=== PATIENT | male | born 1995 | race African-American/Black ===

== ENCOUNTER 2018-12-23 10:50 | Emergency (ER) | payer MEDICAID ==
[~2018-12-23] VITALS: Ht 170.2 cm; Wt 67.0 kg
[2018-12-23] MEDS ORDERED: ALBUTEROL (0.083%) 2.5MG/3ML NEB HHN STA (13:43)
[2018-12-23] MEDS ORDERED: PREDNISONE 20MG TABLET PO STA (13:43)
[2018-12-23] MEDS ORDERED: IPRATROPIUM BROMIDE (0.02%) 0.5MG/2.5ML NEB HHN STA (13:43)
[2018-12-23 15:00] VITALS: BP 116/71
== END 2018-12-23 15:00 | disposition home or self-care (01) ==
LOC: ER 11:28
DX: J45.901 Unspecified asthma with (acute) exacerbation (principal); Z94.5 Skin transplant status; Z91.018 Allergy to other foods
CPT/HCPCS: 94640; 99283; J7512; J7611

== ENCOUNTER 2018-12-30 20:05 | Inpatient (IN) | payer MEDICAID ==
[~2018-12-30] VITALS: Ht 170.2 cm; Wt 69.4 kg
[2018-12-30] MEDS ORDERED: SODIUM CHLORIDE 0.9% 1,000 ML IV ONE (20:41)
[2018-12-30 21:05] LABS: BASOPHILS % 1.3 % (0.0-2.0); EOSINOPHILS % 6.9 % (0.0-5.0); HEMATOCRIT. 39.7 % (42.0-52.0); HEMOGLOBIN. 14.1 g/dL (14.0-18.0); LYMPHOCYTES % 26.6 % (20.0-50.0); MEAN CORPUSCULAR HEMOGLOBIN 28.4 pg (28.0-32.0); MEAN CORPUSCULAR VOLUME 80.1 fL (80.0-94.0); MEAN PLATELET VOLUME 8.2 fl (7.4-10.4); MONOCYTES % 7.8 % (2.0-8.0); NEUTROPHILS % 57.4 % (40.0-76.0); PLATELET 184 x1000/uL (130-400); RED BLOOD CELL COUNT 4.96 mill/uL (4.7-6.1); RED CELL DISTRIBUTION WIDTH 14.1 % (11.6-14.6)
[2018-12-30 21:12] LABS: CHLORIDE 108 mEq/L (98-107)
[2018-12-30 21:15] LABS: ETHANOL BLOOD < 10 mg/dL
[2018-12-30 21:22] LABS: BG BASE EXCESS -0.5 mmol/L (-2.0-2.0); BG CARBOXYHEMOGLOBIN 0.5 % (0.5-1.5); BG DEOXYHEMOGLOBIN 3.2 % (0.0-5.0); BG FRACTION INSPIRED OXYGEN 21; BG HCO3 ACT 23.9 mmol/L (22.0-26.0); BG METHEMOGLOBIN 0.2 % (0.0-1.5); BG OXYGEN SATURATION 96.8 % (92.0-98.5); BG OXYHEMOGLOBIN 96.1 % (94.0-97.0); BG PCO2 38.8 mmHg (35.0-45.0); BG PH 7.408 (7.350-7.450); BG PO2 95.1 mmHg (75.0-100.0); BG SAMPLE SITE RIGHT RADIAL; BG TOTAL HEMOGLOBIN 14.3 g/dL (12.0-18.0); BG VENT MODE ROOM AIR
[2018-12-30 21:26] LABS: *BARBITURATES SCREEN URINE NEGATIVE (NEGATIVE); *BENZODIAZEPINES SCREEN URINE NEGATIVE (NEGATIVE)
[2018-12-30 21:27] LABS: *AMPHETAMINES SCREEN URINE NEGATIVE (NEGATIVE); *COCAINE SCREEN URINE NEGATIVE (NEGATIVE); CANNABINOID URINE SCREEN NEGATIVE (NEGATIVE); METHADONE URINE SCREEN NEGATIVE (NEGATIVE); OPIATES URINE SCREEN NEGATIVE (NEGATIVE); PHENCYCLIDINE URINE SCREEN NEGATIVE (NEGATIVE)
[2018-12-31] VITALS (7 sets, daily range): BP systolic 91–123; BP diastolic 42–79
[2018-12-31] MEDS ORDERED: ONDANSETRON HCL 4MG/2ML INJ IV PRN (09:15)
[2018-12-31] MEDS: DEXT 5%/0.45% NACL 1000ML 1,000 ML IV SCH ×2 (09:45→23:34)
[2018-12-31] MEDS ORDERED: HYDROCODONE/ACETAMINOPHEN 5/325MG TABLET PO PRN (09:45)
[2018-12-31] MEDS ORDERED: MORPHINE SULFATE 4 MG/ML CPJ (NOT FOR IM USE) IV PRN (09:45)
[2018-12-31] MEDS: ACETAMINOPHEN 325MG TABLET PO PRN ×2 (10:03→11:08)
[2018-12-31] MEDS ORDERED: ESCI10TA MT (12:39)
[2018-12-31] MEDS ORDERED: OLAN5TAB3 MT (12:39)
[2018-12-31] MEDS ORDERED: ABIL5 MT (12:39)
[2019-01-01] VITALS (13 sets, daily range): BP systolic 90–119; BP diastolic 39–76
[2019-01-01 05:36] LABS: BASOPHILS % 1.4 % (0.0-2.0); EOSINOPHILS % 5.7 % (0.0-5.0); HEMATOCRIT. 41.4 % (42.0-52.0); HEMOGLOBIN. 14.3 g/dL (14.0-18.0); LYMPHOCYTES % 26.8 % (20.0-50.0); MEAN CORPUSCULAR HEMOGLOBIN 28.2 pg (28.0-32.0); MEAN CORPUSCULAR VOLUME 81.5 fL (80.0-94.0); MEAN PLATELET VOLUME 8.7 fl (7.4-10.4); MONOCYTES % 9.6 % (2.0-8.0); NEUTROPHILS % 56.5 % (40.0-76.0); PLATELET 193 x1000/uL (130-400); RED BLOOD CELL COUNT 5.08 mill/uL (4.7-6.1)
[2019-01-01 05:55] LABS: CHLORIDE 109 mEq/L (98-107)
[2019-01-01] MEDS: DEXT 5%/0.45% NACL 1000ML 1,000 ML IV SCH (12:25)
[2019-01-02] VITALS (11 sets, daily range): BP systolic 86–140; BP diastolic 37–75
[2019-01-02] MEDS: DEXT 5%/0.45% NACL 1000ML 1,000 ML IV SCH ×2 (01:45→15:03)
== END 2019-01-02 17:40 | disposition home or self-care (01) | DRG 812 ==
LOC: ER 21:47 → 5EST 12-31 00:41 → EDBEDREQ 12-31 00:43 → EDBEDREQTM 12-31 00:43 → ENRESERV 12-31 09:56
PROVIDERS: ADMIT Internal Medicine; ATTEND Internal Medicine
DX: T43.591A Poisoning by other antipsychotics and neuroleptics, accidental (unintentional), initial encounter (principal); E87.8 Other disorders of electrolyte and fluid balance, not elsewhere classified; F31.9 Bipolar disorder, unspecified; J45.909 Unspecified asthma, uncomplicated; Z91.018 Allergy to other foods; Y92.89 Other specified places as the place of occurrence of the external cause
CPT/HCPCS: 36415; 36600; 80048; 80305; 80307; 80320; 80329; 82375; 82805; 83036; 84484; 93005; 93970; 96360; 96361; 99285; J7030; G0480

== ENCOUNTER 2019-05-26 14:00 | Emergency (ER) | payer SELFPAY ==
[~2019-05-26] VITALS: Ht 170.2 cm; Wt 65.0 kg
[~2019-05-26 14:00] MED LIST: ABIL5 MT; ESCI10TA MT; OLAN5TAB3 MT
[2019-05-26] MEDS ORDERED: ACETAMINOPHEN 500MG TABLET PO ONE (14:45)
[2019-05-26] MEDS ORDERED: IBUPROFEN 800MG TABLET PO ONE (14:45)
[2019-05-26 16:08] VITALS: BP 117/79
== END 2019-05-26 16:26 | disposition home or self-care (01) ==
LOC: ER 14:00
DX: S70.11XA Contusion of right thigh, initial encounter (principal); J45.909 Unspecified asthma, uncomplicated; R56.9 Unspecified convulsions; F32.9 Major depressive disorder, single episode, unspecified; X58.XXXA Exposure to other specified factors, initial encounter; Y93.9 Activity, unspecified; Y92.9 Unspecified place or not applicable; Z91.018 Allergy to other foods
CPT/HCPCS: 99283

== ENCOUNTER 2019-06-22 18:59 | Emergency (ER) | payer MEDICAID ==
[~2019-06-22] VITALS: Ht 170.2 cm; Wt 64.0 kg
[2019-06-22] MEDS ORDERED: METHYLPREDNISOLONE SOD SUCC 125 MG/2 ML VIAL IV STA (19:07)
[2019-06-22] MEDS ORDERED: ALBUTEROL (0.083%) 2.5MG/3ML NEB HHN STA (19:07)
[2019-06-22] MEDS ORDERED: IPRATROPIUM BROMIDE (0.02%) 0.5MG/2.5ML NEB HHN STA (19:07)
[2019-06-22] MEDS ORDERED: MAGNESIUM 2 G PREMIX 50 ML IV ONE (19:15)
[2019-06-22 19:45] LABS: BASOPHILS % 1.4 % (0.0-2.0); EOSINOPHILS % 9.1 % (0.0-5.0); HEMATOCRIT. 41.2 % (42.0-52.0); HEMOGLOBIN. 14.3 g/dL (14.0-18.0); LYMPHOCYTES % 35.3 % (20.0-50.0); MEAN CORPUSCULAR HEMOGLOBIN 29.5 pg (28.0-32.0); MEAN CORPUSCULAR VOLUME 84.8 fL (80.0-94.0); MONOCYTES % 10.9 % (2.0-8.0); NEUTROPHILS % 43.3 % (40.0-76.0); PLATELET 173 x1000/uL (130-400); RED BLOOD CELL COUNT 4.86 mill/uL (4.7-6.1); RED CELL DISTRIBUTION WIDTH 13.6 % (11.6-14.6)
[2019-06-22 19:49] LABS: CHLORIDE 109 mEq/L (98-107)
[2019-06-23 00:45] VITALS: BP 102/78
== END 2019-06-23 00:46 | disposition home or self-care (01) ==
LOC: ER 18:59
DX: J45.909 Unspecified asthma, uncomplicated (principal); Z91.018 Allergy to other foods
CPT/HCPCS: 36415; 71045; 80053; 84484; 85025; 93005; 94640; 94660; 96365; 96375; 99284; J2930; J3475; J7611; Z7610